=== PATIENT | female | born 1945 | race Caucasian/White ===

== ENCOUNTER 2017-02-16 09:47 | Emergency (ER) | payer MEDICARE, BC ==
--- NOTE | 2017-02-16 11:04 | EDM.PDOC ---
ED HPI GENERAL MEDICAL PROBLEM - General Chief Complaint: ENT Problem Stated Complaint: EAR PROBLEM Time Seen by Provider: 02/16/17 10:23 Source of Information: Reports: Patient, RN, RN Notes Reviewed History Limitations: Reports: No Limitations - History of Present Illness INITIAL COMMENTS - FREE TEXT/NARRATIVE: Patient presents to the emergency room at [facility] complaining of a ringing sensation in her left ear. The patient denies any injury or trauma to the left ear. The patient denies any recent ear infections. No current upper respiratory symptoms. The patient states that has been progressive over the past couple of months. The patient states she had the same problem with the right ear, which no diagnosis was found. Onset: Gradual Duration: Constant - Related Data Allergies Allergy/AdvReac Type Severity Reaction Status Date / Time No Known Allergies Allergy Verified 12/28/15 08:10 ED ROS ENT - Review of Systems Review Of Systems: See Below Constitutional: Denies: Fever, Chills, Weakness HEENT: Reports: Ear Pain (ringing/buzzing in left ear) Respiratory: Denies: Shortness of Breath, Cough Cardiovascular: Denies: Chest Pain, Palpitations Skin: Reports: No Symptoms Neurological: Reports: No Symptoms. Denies: Dizziness, Headache ED EXAM, ENT - Physical Exam Exam: See Below Exam Limited By: No Limitations General Appearance: Alert, No Apparent Distress Eye Exam: Bilateral Eye: Normal Inspection, PERRL Ears: Normal External Exam, Normal Canal, Normal TMs, Other ([id number]) Nose: Normal Inspection, Normal Mucousa Mouth/Throat: Normal Inspection, Normal Oropharynx, Normal Teeth Neck: Supple Respiratory/Chest: No Respiratory Distress, Lungs Clear, Normal Breath Sounds Cardiovascular: Regular Rate, Rhythm Neurological: Alert, Oriented Skin: Warm, Dry, Intact, Normal Color, No Rash Departure - Departure Time of Disposition: 11:03 Disposition: Home, Self-Care 01 Condition: good Clinical Impression: Left-sided tinnitus - Discharge Information Instructions: Tinnitus Referrals: Daysi Castillo MD [Physician] - Forms: ED Department Discharge Additional Instructions: 1. Make appointment to see Dr. Castillo next week. Would recommend an ENT referral. - Problem List Review Problem List Initiated/Reviewed/Updated: Yes
[2017-02-16 13:22] VITALS: BP 162/56
== END 2017-02-16 11:09 | disposition home or self-care (01) ==
LOC: VM.ED 09:47
DX: H93.12 Tinnitus, left ear (principal)
CPT/HCPCS: 99282-GF; 99283